=== PATIENT | male | born 1960 | race Caucasian/White ===

== ENCOUNTER → 2017-01-02 | Outpatient (CLI) | payer OTHER | END | disposition home or self-care (01) | LOC: RAD 13:32 | DX: J44.9 Chronic obstructive pulmonary disease, unspecified (principal); R06.02 Shortness of breath; J18.0 Bronchopneumonia, unspecified organism; M95.4 Acquired deformity of chest and rib; S22.41XA Multiple fractures of ribs, right side, initial encounter for closed fracture; Z87.891 Personal history of nicotine dependence; X58.XXXA Exposure to other specified factors, initial encounter; Y93.89 Activity, other specified; Y92.89 Other specified places as the place of occurrence of the external cause; Y99.8 Other external cause status ==

== ENCOUNTER → 2022-04-05 | Outpatient (CLI) | payer OTHER ==
[2022-04-05 11:23] LABS: BASO # 0.1 10*3/uL (0.0-0.1); BASO % 0.7 % (0.0-1.0); EOS # 0.4 10*3/uL (0.0-0.4); EOS % 4.3 % (1.0-4.0); LYMPH # 1.9 10*3/uL (1.3-4.4); LYMPH % 19.6 % (27.0-41.0); MEAN CELL VOLUME 90.4 fl (80.0-94.0); MEAN CORPUSCULAR HGB CONC 34.3 g/dl (33.0-37.0); MEAN PLATELET VOLUME 10.3 fl (9.6-12.3); MONO # 0.9 10*3/uL (0.1-1.0); MONO % 8.8 % (3.0-9.0); NEUT # 6.6 10*3/uL (2.3-7.9); NEUT % 66.1 % (47.0-73.0); PLATELET COUNT AUTOMATED 349 10*3/uL (130-400); RED BLOOD COUNT 5.09 10*6/uL (4.50-5.90); RED CELL DISTRI WIDTH 13.6 % (0-14.5); WHITE BLOOD COUNT 9.9 10*3/uL (4.8-10.8)
[2022-04-05 11:39] LABS: ALKALINE PHOSPHATASE 89 U/L (45-117); BUN 20 mg/dl (7-24); CHLORIDE 110 mmol/L (98-107); CHOLESTEROL 183 mg/dL (<200); POTASSIUM 3.7 mmol/L (3.5-5.1); SGOT/AST 24 IU/L (3-35); SGPT/ALT 53 U/L (12-78); SODIUM 141 mmol/L (136-145); TOTAL PROTEIN 7.8 gm/dL (6.4-8.2); TRIGLYCERIDES 297 mg/dl (<150)
[2022-04-05 11:44] LABS: FREE T4 1.07 ng/dl (0.76-1.46); LDL CHOLESTEROL 87 mg/dL (9-159)
[2022-04-06 10:07] LABS: CREATININE,URINE 167.2 mg/dL (Not Estab.)
== END | disposition home or self-care (01) ==
LOC: LAB 11:03
PROVIDERS: ATTEND Internal Medicine
DX: I10 Essential (primary) hypertension (principal); E78.5 Hyperlipidemia, unspecified; R94.31 Abnormal electrocardiogram [ECG] [EKG]

== ENCOUNTER → 2023-02-03 | Outpatient (CLI) | payer OTHER | END | disposition home or self-care (01) | LOC: RAD 09:23 | PROVIDERS: ATTEND Internal Medicine | DX: J98.11 Atelectasis (principal); R06.09 Other forms of dyspnea ==

== ENCOUNTER → 2023-02-19 | Outpatient (CLI) | payer OTHER ==
[~2023-02-19] MED LIST: TRELEGY ELLIPT1 EACH PO; VITAMIN D3125 MC1 PO; ZESTORETIC 10-1 EACH PO
== END | disposition home or self-care (01) ==
LOC: CARD 00:13
PROVIDERS: ATTEND Internal Medicine
DX: R06.09 Other forms of dyspnea (principal)